=== PATIENT | male | born 1980 | race Caucasian/White ===

== ENCOUNTER → 2018-04-05 | Outpatient (CLI) | payer BC ==
--- NOTE | 2018-04-05 08:57 | KCIC ---
CT maxillofacial without contrast 04/05/2018 CLINICAL INDICATION: Chronic sinusitis, congestion and drainage with headaches. COMPARISON: None. TECHNIQUE: Multiple CT images of the maxillofacial were obtained without contrast. *One or more of the following individualized dose reduction techniques were utilized for this examination: 1. Automated exposure control. 2. Adjustment of the mA and/or kV according to patient size. 3. Use of iterative reconstruction technique. FINDINGS: The mastoid air cells and paranasal sinuses are well aerated without significant mucosal thickening. Note is made of a left yaya bullosa. The ostiomeatal units are patent. No significant maxillary sinus wall thickening or dehiscence. The retromaxillary fat is preserved. Globes and orbits are unremarkable. The intra and extraconal fat is preserved. The extraocular muscles are symmetric. IMPRESSION: Unremarkable CT maxillofacial without significant paranasal sinus mucosal thickening. Electronically signed by: Cirilo Tran MD (04/05/2018 8:52 AM) [facility]
== END | disposition home or self-care (01) ==
LOC: KCIC CT 08:25
PROVIDERS: ATTEND Otolaryngology
DX: J01.41 Acute recurrent pansinusitis (principal); J32.2 Chronic ethmoidal sinusitis; J32.1 Chronic frontal sinusitis; J32.3 Chronic sphenoidal sinusitis
CPT/HCPCS: 70486

== ENCOUNTER 2018-06-18 18:16 | Emergency (ER) | payer BC ==
[~2018-06-18] VITALS: Ht 190.5 cm; Wt 127.0 kg
[2018-06-18] MEDS ORDERED: IV NORMAL SALINE 500ML BAG 500 ML IV ONE (19:30)
[2018-06-18 19:45] VITALS: BP 166/104
--- NOTE | 2018-06-18 20:10 | PHYS DOC ---
Past Medical History Past Medical History: No Pertinent History Past Surgical History: No Surgical History Additional Information: CHEWING TOBACCO Alcohol Use: Occasionally Drug Use: None Adult General Chief Complaint Chief Complaint: General Complaint HPI HPI 37-year-old male presents to ER via POV with vague complaints of generalized symptoms. He reports he feels bloated and full in his abdomen, swelling and tightness in his extremities, increased urination, and generalized fatigue. Patient states he did just drive to [place] on returned on Monday. He denies any chest pain, palpitations, or shortness of air. Patient states he wakes up in the morning and he has generalized fatigue and tightness in his extremities. He denies any recent falls or injury. He denies any recent flu or cold-like illness. He denies alcohol use, illicit drug use, but does report he chews tobacco. 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 Review of Systems Review of Systems Constitutional: Denies fever or chills. Reports generalized fatigue Eyes: Denies change in visual acuity, redness, or eye pain [] HENT: Denies nasal congestion or sore throat [] Respiratory: Denies cough or shortness of breath [] Cardiovascular: Denies CP/palpitations GI: Denies abdominal pain, nausea, vomiting, bloody stools or diarrhea. Reports feels bloated in abd : Denies dysuria or hematuria [] Musculoskeletal: Denies back pain or joint pain. Reports feels swollen and tight in extremities Integument: Denies rash or skin lesions [] Neurologic: Denies headache, focal weakness or sensory changes. Denies dizziness Endocrine: Reports polyuria. Denies polydipsia [] All other systems were reviewed and found to be within normal limits, except as documented in this note. Current Medications Current Medications Current Medications Medications (Trade) Dose Ordered Sig/Wagner Start Time Stop Time Status Last Admin Dose Admin Sodium Chloride 500 ml @ 500 mls/hr 1X ONCE 06/18/18 19:30 06/19/18 07:00 DC 06/18/18 20:18 500 MLS/HR Physical Exam Physical Exam Constitutional: Well developed, well nourished, no acute distress, non-toxic appearance. [] HENT: Normocephalic, atraumatic, oropharynx moist, no oral exudates, nose normal. [] Eyes: PERRLA, no nystagmus, conjunctiva normal, no discharge. [] Neck: Normal range of motion, no tenderness, supple, no stridor. [] Cardiovascular: Heart rate regular rhythm, no murmur [] Lungs & Thorax: Bilateral breath sounds clear to auscultation [] Abdomen: Bowel sounds normal, soft/obese, no tenderness/rigidity, no masses, no pulsatile masses. [] Skin: Warm, dry, no erythema, no rash. [] Back: No tenderness, no CVA tenderness. [] Extremities: No tenderness, no cyanosis, no clubbing, ROM intact, 1+ pedal edema bilat. with sock imprints in ankles- 2+ bilat. dorsalis pedis/posterior tibial. Steady unassisted gait Neurologic: Alert and oriented X 3, normal motor function, normal sensory function, no focal deficits noted. [] Psychologic: Affect normal, judgement normal, mood normal. [] Current Patient Data Vital Signs Vital Signs Date Time Temp Pulse Resp B/P (MAP) Pulse Ox O2 Delivery O2 Flow Rate FiO2 06/18/18 19:45 98.2 106 20 166/104 (124) 97 Room Air 98.2 Lab Values Laboratory Tests Test 06/18/18 20:15 06/18/18 21:16 White Blood Count 8.4 x10^3/uL (4.0-11.0) Red Blood Count 4.66 x10^6/uL (4.30-5.70) Hemoglobin 14.0 g/dL (13.0-17.5) Hematocrit 41.6 % (39.0-53.0) Mean Corpuscular Volume 89 fL (79-100) Mean Corpuscular Hemoglobin 30 pg (25-35) Mean Corpuscular Hemoglobin Concent 34 g/dL (31-37) Red Cell Distribution Width 13.8 % (11.5-14.5) Platelet Count 238 x10^3/uL (140-400) Neutrophils (%) (Auto) 70 % (31-73) Lymphocytes (%) (Auto) 22 % (24-48) L Monocytes (%) (Auto) 6 % (0-9) Eosinophils (%) (Auto) 2 % (0-3) Basophils (%) (Auto) 1 % (0-3) Neutrophils # (Auto) 5.9 x10^3uL (1.8-7.7) Lymphocytes # (Auto) 1.8 x10^3/uL (1.0-4.8) Monocytes # (Auto) 0.5 x10^3/uL (0.0-1.1) Eosinophils # (Auto) 0.1 x10^3/uL (0.0-0.7) Basophils # (Auto) 0.1 x10^3/uL (0.0-0.2) D-Dimer (Beatriz) < 0.27 ug/mlFEU Sodium Level 139 mmol/L (136-145) Potassium Level 3.7 mmol/L (3.5-5.1) Chloride Level 101 mmol/L (98-107) Carbon Dioxide Level 26 mmol/L (21-32) Anion Gap 12 (6-14) Blood Urea Nitrogen 14 mg/dL (8-26) Creatinine 0.8 mg/dL (0.7-1.3) Estimated GFR (Cockcroft-Gault) 109.4 BUN/Creatinine Ratio 18 (6-20) Glucose Level 104 mg/dL (70-99) H Calcium Level 8.9 mg/dL (8.5-10.1) Magnesium Level 2.3 mg/dL (1.8-2.4) Total Bilirubin 0.5 mg/dL (0.2-1.0) Aspartate Amino Transferase (AST) 27 U/L (15-37) Alanine Aminotransferase (ALT) 50 U/L (16-63) Alkaline Phosphatase 51 U/L (46-116) Troponin I Quantitative < 0.017 ng/mL (0.000-0.055) TS-Bgd-T-Type Natriuretic Peptide 26 pg/mL (0-124) Total Protein 8.1 g/dL (6.4-8.2) Albumin 4.3 g/dL (3.4-5.0) Albumin/Globulin Ratio 1.1 (1.0-1.7) Urine Collection Type Unknown Urine Color Yellow Urine Clarity Clear Urine pH 5.5 Urine Specific [place] 1.025 Urine Protein Negative mg/dL (NEG-TRACE) Urine Glucose (UA) Negative mg/dL (NEG) Urine Ketones (Stick) Negative mg/dL (NEG) Urine Blood Negative (NEG) Urine Nitrite Negative (NEG) Urine Bilirubin Negative (NEG) Urine Urobilinogen Dipstick 1.0 mg/dL (0.2 mg/dL) Urine Leukocyte Esterase Negative (NEG) Urine RBC 0 /HPF (0-2) Urine WBC 0 /HPF (0-4) Urine Squamous Epithelial Cells None /LPF Urine Bacteria 0 /HPF (0-FEW) Urine Mucus Slight /LPF Laboratory Tests 06/18/18 20:15 Laboratory Tests 06/18/18 20:15 EKG EKG EKG obtained 06/18/18 at 1945 Interpreted by ER physician [address] [place] axis Rate 101 No STEMI Radiology/Procedures Radiology/Procedures [] Course & Med Decision Making Course & Med Decision Making Pertinent Labs and Imaging studies reviewed. (See chart for details) 2109: Discussed test results with patient. He is up at bedside to provide urinalysis as that is the only test pending. EKG with no acute ST elevation or STEMI and troponin was <0.017. Glucose was 104. Patient had traveled to [place] last week so d-dimer was obtained and this was normal limits. Discussed if UA unremarkable patient will be discharged with plans to follow-up with his primary care physician within the next week if symptoms persist and for further care. Patient remains nontoxic in appearance and in no visible distress. Discussed initial HR of 106 and following IV flds current HR in the 80s- he reports he probably isn't drinking enough water daily. He denies alcohol /caffeine drinks. UA was unremarkable and this was discussed with pt. Discussed all test results again and unremarkable findings. Discussed f/u this week with his PCP to discuss sxs, concerns, and for further evaluation. Pt encouraged to increase flds with well balanced meals. Education provided on s&s to return to ER for and d/c instructions were discussed. Pt at time of d/c was in no distress and remains nontoxic in appearance. Dragon Disclaimer Dragon Disclaimer This electronic medical record was generated, in whole or in part, using a voice recognition dictation system. Departure Departure Referrals: CATHY DUNAWAY (PCP) MOMO EVANS APRN Jun 18, 2018 20:10
[2018-06-18 20:23] LABS: BASO # 0.1 x10^3/uL (0.0-0.2); BASO % 1 % (0-3); EOS # 0.1 x10^3/uL (0.0-0.7); EOS % 2 % (0-3); HEMATOCRIT 41.6 % (39.0-53.0); LYMPH # 1.8 x10^3/uL (1.0-4.8); LYMPH % 22 % (24-48); MEAN CORPUSCULAR HEMOGLOBIN 30 pg (25-35); MEAN CORPUSCULAR HGB CONC 34 g/dL (31-37); MEAN CORPUSCULAR VOLUME 89 fL (79-100); MONO # 0.5 x10^3/uL (0.0-1.1); MONO % 6 % (0-9); NEUT # 5.9 x10^3uL (1.8-7.7); NEUT % 70 % (31-73); PLATELET COUNT 238 x10^3/uL (140-400); RED BLOOD COUNT 4.66 x10^6/uL (4.30-5.70); RED CELL DISTRIBUTION WIDTH 13.8 % (11.5-14.5); WHITE BLOOD COUNT 8.4 x10^3/uL (4.0-11.0)
[2018-06-18 20:36] LABS: CALCIUM 8.9 mg/dL (8.5-10.1); CREATININE 0.8 mg/dL (0.7-1.3); GFR 109.4; POTASSIUM 3.7 mmol/L (3.5-5.1)
[2018-06-18 20:42] LABS: ALBUMIN 4.3 g/dL (3.4-5.0); ALBUMIN/GLOBULIN RATIO 1.1 (1.0-1.7); MAGNESIUM 2.3 mg/dL (1.8-2.4); TOTAL BILIRUBIN 0.5 mg/dL (0.2-1.0); TOTAL PROTEIN 8.1 g/dL (6.4-8.2)
[2018-06-18 21:22] LABS: BILIRUBIN,URINE NEGATIVE (NEG); CLARITY,URINE CLEAR; COLOR,URINE YELLOW; NITRITE,URINE NEGATIVE (NEG); PH,URINE 5.5; PROTEIN,URINE NEGATIVE (NEG-TRACE)
[2018-06-18 21:26] LABS: BACTERIA,URINE 0 /HPF (0-FEW); RBC,URINE 0 /HPF (0-2); WBC,URINE 0 /HPF (0-4)
--- NOTE | 2018-06-19 06:34 | EKG ---
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
--- NOTE | 2018-06-19 08:12 | RAD ---
CHEST PA LATERAL History: Weakness and bloating, pressure for 4 days Comparison: July 10, 2011 Findings: 2 PA views of the chest and single lateral view of the chest are submitted. There is no new infiltrate, pleural fluid, pneumothorax. Cardiac silhouette is stable. Impression: 1. No acute radiographic abnormality is identified. Electronically signed by: David Vuong MD (06/19/2018 8:09 AM) [id number]
== END 2018-06-18 22:01 | disposition home or self-care (01) ==
LOC: ER 18:16
DX: R14.0 Abdominal distension (gaseous) (principal); R53.83 Other fatigue; R35.8 Other polyuria; M79.89 Other specified soft tissue disorders; Z72.0 Tobacco use
CPT/HCPCS: 36415; 71046; 80053; 81001; 83735; 83880; 84484; 85025; 85379; 93005; 99285; J7040; 96360